=== PATIENT | female | born 1965 | race Caucasian/White ===

== ENCOUNTER 2018-10-02 12:26 | Emergency (ER) | payer BC, OTHER ==
[~2018-10-02] VITALS: Ht 162.6 cm; Wt 68.0 kg
[2018-10-02] MEDS ORDERED: HYDROXYCHLOROQ200 M1 PO (12:43)
[2018-10-02] MEDS ORDERED: SYNTHROID25 MC1 PO (12:44)
[2018-10-02] MEDS ORDERED: WELLBUTRIN SR150 MG PO (12:44)
[2018-10-02] MEDS ORDERED: CLONAZEPAM 0.50.5 M1 PO (12:45)
[2018-10-02] MEDS ORDERED: NORCO 5-325 TA1 EACH PO (13:59)
[2018-10-02 14:39] VITALS: BP 131/80
== END 2018-10-02 14:40 | disposition home or self-care (01) ==
LOC: ER 12:26
DX: S22.089A Unspecified fracture of T11-T12 vertebra, initial encounter for closed fracture (principal); Z88.1 Allergy status to other antibiotic agents; Z88.8 Allergy status to other drugs, medicaments and biological substances; V89.2XXA Person injured in unspecified motor-vehicle accident, traffic, initial encounter; Y93.89 Activity, other specified; Y92.89 Other specified places as the place of occurrence of the external cause; Y99.8 Other external cause status